=== PATIENT | female | born 1995 | race Caucasian/White ===

== ENCOUNTER → 2021-10-21 14:41 | Outpatient (CLI) | payer OTHER, SELFPAY ==
[2021-10-21 19:08] LABS: COVID19 -Nasal RAPID Negative (Negative)
== END ==
PROVIDERS: PCP Physician Assistant; Visit Provider Obstetrics & Gynecology
DX: Z01.812 Encounter for preprocedural laboratory examination (principal); Z20.822 Contact with and (suspected) exposure to COVID-19
CPT/HCPCS: 87635; C9803

== ENCOUNTER 2021-10-22 09:39 | Day surgery (SDC) | payer OTHER, SELFPAY ==
[2021-10-20 10:41] VITALS: BMI 51.5
[2021-10-22] VITALS (7 sets, daily range): BP systolic 98–136; BP diastolic 61–92; PULSE 77–89; RESP 16–99; TEMP 36.4–36.8; O2SAT 96–98; BMI 51.5
--- NOTE | 2021-10-22 | PATH_ITS ---
[facility] Accession Number: [id number] . 01 Material submitted: . PART A: endometrium - ENDOMETRIAL POLYPS PART B: endometrium - ENDOMETRIAL CURETTINGS PART C: endocervix - ENDOCERVICAL CURETTINGS . 01 Diagnosis: A. Endometrial Polyps, Polypectomy: Rare focus of complex hyperplasia without atypia, in background of polyp(s). Background of mostly proliferative endometrium with breakdown. Negative for malignancy. . B. Endometrium, Curettage: Multifocal complex hyperplasia without atypia, in background of polyp(s). Background of mostly proliferative endometrium with breakdown. Negative for malignancy. . C. Endocervix, Curettage: Predominantly blood. Rare strips of mixed benign endocervical epithelium and benign breakdown endometrium. V 10/28/2021 1238 Local . 01 Comment: Dr. Patricia Daniel reviewed this case and concurs with the diagnosis. . 01 Electronically signed: . Barbi Casas MD, Pathologist NPI- [id number] . 01 Gross description: . Part A: ENDOMETRIAL POLYPS: Received in formalin are minute fragments of mucoid and hemorrhagic material measuring 2.0 x 2.0 x 0.4 cm in aggregate. Submitted in toto in 1 cassette. Part B: ENDOMETRIAL CURETTINGS: Received in formalin are minute fragments of mucoid and hemorrhagic material measuring 3.0 x 3.0 x 0.4 cm in aggregate. Submitted in toto in 2 cassettes. Part C: ENDOCERVICAL CURETTINGS: Received in formalin are minute fragments of mucoid and hemorrhagic material measuring 1.5 x 1.5 x 0.4 cm in aggregate. Submitted in toto in 1 cassette. /JOHN PAUL 10/25/2021 1842 Local . 01 Pathologist provided ICD-10: N85.00, N92.1, N84.0 . 01 CPT . 194355, 852947, 488348 Specimen Comment: A courtesy copy of this report has been sent to [phone] Performed at: 01 [facility] [address] [place] [address], [place], [place] [id number] MD Getachew Breen MD Phone: [phone]
[2021-10-22] MEDS: LACTATED RINGERS 1,000 ML 42 ML IV (09:55)
--- NOTE | 2021-10-22 10:08 | PM.PREOP ---
Pre-operative Note COVID-19 COVID-19 status: Negative Result date/Date tested (Pos, Neg/Pending): 10/22/21 Criteria for continued procedure: Non-surgical alternatives not available or appropriate per current SOC Interval Note History & Physical reviewed/Exam performed by Physician: Yes Changes to H&P: No
--- NOTE | 2021-10-22 11:16 | SUR.OPER ---
Lithotomy on padded OR bed, head on pillow, arms secured on padded arm boards at <90 degrees abduction. Legs secured in padded yellow fins stirrups.
--- NOTE | 2021-10-22 12:58 | P.OP_ITS ---
Operative Date/Time/Diagnoses Date of procedure: 10/22/21 Time of procedure: 12:10 Pre-op diagnosis: Dysfunctional uterine bleeding Endometrial polyp Post-op diagnosis: same Procedure & Clinicians Procedure: Procedures Operation Date: 10/22/21 11:00 Actual Procedure Side Surgeon p Hysteroscopy with polypectomy, Dilation and Curettage Krzysztof Lopez MD Indications: Jitendra is a 26-year-old nulligravida whose last normal menstrual period began on June 25, 2021 and continued until 09/24/2021 with intermittent spotting/bleeding since then presented in September 2021 to discuss hysterectomy.? [place] [facility] for a long history of menometrorrhagia requesting hysterectomy but those requests have been denied to this point.? Patient experienced menarche at age 10 and her periods have never been regular.? She was placed on oral contraceptives from age 14 through age 23 and although it decreased her flow, her periods remained chaotic and very painful when they did occur.? Patient has not had an endometrial biopsy performed and her last Pap smear at [facility] was apparently negative according to the patient.? Her has a vasectomy and they have no desire for children.? Patient underwent pelvic ultrasound on 06/08/2021 at [facility] which showed the uterus to be normal in overall size and shape measuring 3.7 x 4.5 x 10.3 cm.? Slight cystic changes seen in the lower uterine segment and cervix with the biggest cyst measuring 6 mm in mean diameter.? As the endometrial stripe approaches the fundus, it is expanded measuring 2.3 cm in sagittal diameter.? Within the hyperechoic focus a rounded 1.6-1.7 cm somewhat more discrete focus with a vascular stalk is identified suspicious for polyp.? Both ovaries are slightly bulky and character with the right measuring 2.0 x 3.1 x 4.2 cm and the left measuring 2.2 x 2.8 x 4.0 cm.? Each contains numerous developing follicle scattered throughout the ovary without as distinct peripheral distribution.? 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 Patient's menstrual history and history of excessive hair growth are also consistent with PCOS.? After discussion of all options, the patient has decided to proceed instead with hysteroscopy with resection of endometrial polyp and D&C.? The option of inserting a Mirena IUD for menstrual suppression at the time of her procedure was declined.? She presents today for her scheduled surgery. Surgeon: Krzysztof Lopez Anesthesia Type: General Operative Notes Findings: The uterine cavity sounds to a depth of 9 cm. Cavity itself contains 3 thin stalked polyps and the endometrium throughout the cavity is abundant and shaggy appearance. Scant ECC was obtained along with abundant EMC. Polyps, ECC, and EMC were submitted as separate pathologic specimens Closure Type: not applicable Specimen(s): endometrial curettings, endometrial polyp and other (Endocervical curettings) Estimated blood loss (mL): 25 Blood products transfused: none Procedure in detail: With the patient under satisfactory general anesthesia in the modified dorsal lithotomy position, perineum, vagina, and lower abdomen were prepped and draped in the usual manner for vaginal surgery. A pre-surgical safety time-out was then taken in accordance with [facility] Main OR protocols. A bivalve speculum was inserted vagina and the cervix easily visualized. Menstrual bleeding was noted to be coming from the cervical os. The endocervical canal was sequentially dilated to 6 mm with Hegar dilators and using saline as a distention medium the endometrial cavity was then inspected hysteroscopically with the findings as noted previously. The distention medium was then switched to sorbitol and using a resectoscope with a loop electrode, the polyps were removed at their base and submitted as a separate pathologic specimen. Endocervical curettings were then obtained Kevorkian box curette followed by sharp curettage of the endometrial cavity. ECC and EMC were submitted as separate pathologic specimens. Following completion of the curettage, the tenaculum was removed from the anterior lip of the cervix and an Allis clamp was used render the tenaculum punctures hemostatic. Once complete hemostasis was assured, the speculum was removed from vagina and the patient awakened from anesthesia. She was then transferred to PACU for a period of observation and recovery after having tolerated procedure well. Complications: none Post-operative Condition: stable Disposition: PACU Plan for aftercare: Routine postoperative care with follow-up planned for 2 weeks postop.
== END 2021-10-22 14:02 | disposition home or self-care (01) ==
PROVIDERS: PCP Physician Assistant; Referring Provider Obstetrics & Gynecology; Visit Provider Obstetrics & Gynecology
PROC: 0UDB8ZZ Extraction of Endometrium, Via Natural or Artificial Opening Endoscopic (ICD-10-PCS; CPT 58558; principal; 2021-10-22 11:00)
DX: N85.00 Endometrial hyperplasia, unspecified (principal); N93.8 Other specified abnormal uterine and vaginal bleeding; E66.01 Morbid (severe) obesity due to excess calories; Z68.43 Body mass index [BMI] 50.0-59.9, adult; E28.2 Polycystic ovarian syndrome
CPT/HCPCS: 58558; J0330; J1100; J1885; J2250; J2405; J2704; J3010

== ENCOUNTER → 2022-01-26 14:55 | Outpatient (ROUT) | payer OTHER, SELFPAY ==
[2022-01-26 15:23] LABS: COVID19 -Nasal RAPID Negative (Negative)
== END ==
PROVIDERS: PCP Physician Assistant; Visit Provider Obstetrics & Gynecology
DX: Z01.812 Encounter for preprocedural laboratory examination (principal); Z20.822 Contact with and (suspected) exposure to COVID-19
CPT/HCPCS: 87635

== ENCOUNTER 2022-01-27 12:09 | Day surgery (SDC) | payer OTHER, SELFPAY ==
[2022-01-25 12:33] VITALS: BMI 52.6
[2022-01-27] VITALS (17 sets, daily range): BP systolic 97–142; BP diastolic 49–92; PULSE 67–95; RESP 12–18; TEMP 36.1–36.8; O2SAT 94–100; BMI 52.6; BMI 53.7
--- NOTE | 2022-01-27 | PATH_ITS ---
[facility] Accession Number: [id number] . 01 Material submitted: . uterus - UTERUS AND FALLOPAIN TUBES . 01 Diagnosis: Uterus and Fallopian Tubes, Supracervical Hysterectomy and Bilateral Salpingectomy: Disordered proliferative endometrium; no atypical hyperplasia and no malignancy. Complete cross-section of bilateral fimbriated fallopian tubes identified without any significant pathologic alterations. [facility]V 01/31/2022 1224 Local . 01 Electronically signed: . Karla Fairchild MD, Pathologist NPI- [id number] . 01 Gross description: . The specimen is received in formalin labeled with the patient's name, , and uterus and fallopian tubes and consists of a relatively intact uterus (52 grams, 5.4 cm SI, 5.2 cm ML, 3.7 cm AP), with no cervix identified and two unoriented fimbriated fallopian tubes (the first measures 7.5 x 0.7 cm and the second is fragmented and reapproximated to measure 7.0 x 0.6 cm). No additional adnexa are identified. Due to the lack of cervix and attached adnexa, orientation cannot be determined. The uterine serosa is rico and smooth with no evidence of adhesions or hemorrhage identified. The margin at the lower uterine segment is inked blue. The endometrial cavity measures 2.3 cm from cornu to cornu and 2.8 cm in length with lush red endometrium that averages 0.3 cm thick with delicate friable endometrium. No polyps or lesions are identified. The myometrium is pink and trabecular, and measures up to 1.5 cm in maximum thickness with no nodules or lesions identified. Two additional detached fragments of uterus are found within the container measuring 2.6 x 2.0 x 1.8 cm and 2.5 x 2.2 x 2.0 cm, both with presumed endometrium. . The intact fallopian tube has congested smooth serosa with multiple cystic structures near the fimbriated end measuring 0.6 cm in greatest dimension, filled with clear serous fluid. Sectioning reveals an unremarkable stellate lumen. The fragmented fimbriated fallopian tube has rico smooth serosa with no cystic structures identified. Sectioning reveals an unremarkable stellate lumen. . A1: Lower uterine segment to margin perpendicular. A2-A5: Full thickness sections. A6: Opposite side perpendicular lower uterine segment to margin. A7-A10: Opposite side full thickness sections. A11: Injection Mold Tooling Technician separate sections with endometrium. A12: Intact fallopian tube to include entire fimbriae and cross sections. A13: Fragmented fallopian tube to include one-half of bisected fimbriae and cross sections. ([id number]) /[facility] 01/28/2022 1730 Local . 01 Pathologist provided ICD-10: N92.1, N85.01 . 01 CPT . 140119 Specimen Comment: A courtesy copy of this report has been sent to [phone] Performed at: 01 [facility] [address] [place] [address] [address] [facility], [place], [place] [id number] MD Getachew Breen MD Phone: [phone]
[2022-01-27] MEDS: LACTATED RINGERS 1,000 ML 42 ML IV (12:55)
[2022-01-27] MEDS: ACETAMINOPHEN IV 1,000 MG/100 ML VIAL 400 MG IV (12:56)
[2022-01-27] MEDS: SCOPOLAMINE 1 PATCH TOP (12:56)
--- NOTE | 2022-01-27 13:36 | PM.PREOP ---
Pre-operative Note COVID-19 COVID-19 status: Negative Result date/Date tested (Pos, Neg/Pending): 01/26/22 Criteria for continued procedure: Non-surgical alternatives not available or appropriate per current SOC Interval Note History & Physical reviewed/Exam performed by Physician: Yes Changes to H&P: Yes H&P completed within 30 days and has changed as indicated here:: In addition to counseling re: performance of TLH w/ BS as originally planned, also discussed was the possibility of laparoscopic supracervical hysterectomy should her pelvic anatomy or other intraoperative considerations require supracervical hysterectomy be performed instead of TLH w/ BS due to safety concerns. She understands the possible option of supracervical hysterectomy and accepts the option if indicated.
[2022-01-27] MEDS: CEFAZOLIN 3 GM IN 0.9 % NACL 3 GM/100 ML PLAST..BAG IV (14:03)
[2022-01-27] MEDS: BUPIVACAINE 0.5% W/ EPI (PF) 30 ML VIAL INJ (14:46)
--- NOTE | 2022-01-27 15:00 | SUR.OPER ---
Lithotomy on padded OR bed. Brecon Pad Positioner under torso. Head on wedge per anesthesia, arms padded and tucked at sides. Legs secured in padded yellow fins stirrups.
[2022-01-27] MEDS: ROPIVACAINE 0.2% PF 2 MG/ML 20ML AMP 20 ML INJ (15:23)
--- NOTE | 2022-01-27 16:32 | PM.GYNOP.1 ---
Operative Date/Time/Diagnoses Date of procedure: 01/27/22 Time of procedure: 14:15 Pre-op diagnosis: Dysfunctional uterine bleeding Complex endometrial hyperplasia without atypia Post-op diagnosis: same Procedure & Clinicians Procedure: Procedures Operation Date: 01/27/22 13:45 Actual Procedure Side Surgeon p Laparoscopic supracervical hysterectomy and bilateral salpingectomy Krzysztof Lopez MD Indications: Jitendra is a 26-year-old nulligravida whose last normal menstrual period began on December 28, 2021 with intermittent spotting/bleeding since then presented in September 2021 to discuss hysterectomy.? Patient has been seen on [facility] and also over [facility] for a long history of menometrorrhagia requesting hysterectomy but those requests have been denied to this point.? Patient experienced menarche at age 10 and her periods have never been regular.? She was placed on oral contraceptives from age 14 through age 23 and although it decreased her flow, her periods remained chaotic and very painful when they did occur.? Patient has not had an endometrial biopsy performed and her last Pap smear at [facility] was apparently negative according to the patient.? Her has a vasectomy and they have no desire for children.? Patient underwent pelvic ultrasound on 06/08/2021 at [facility] which showed the uterus to be normal in overall size and shape measuring 3.7 x 4.5 x 10.3 cm.? Slight cystic changes seen in the lower uterine segment and cervix with the biggest cyst measuring 6 mm in mean diameter.? As the endometrial stripe approaches the fundus, it is expanded measuring 2.3 cm in sagittal diameter.? Within the hyperechoic focus a rounded 1.6-1.7 cm somewhat more discrete focus with a vascular stalk is identified suspicious for polyp.? Both ovaries are slightly bulky and character with the right measuring 2.0 x 3.1 x 4.2 cm and the left measuring 2.2 x 2.8 x 4.0 cm.? Each contains numerous developing follicle scattered throughout the ovary without as distinct peripheral distribution.? 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 Patient's menstrual history and history of excessive hair growth are also consistent with PCOS.? On 10/22/2021 the patient underwent hysteroscopy with resection of endometrial polyp and D&C.? Pathology from the procedure showed complex endometrial hyperplasia without atypia.? After discussion of all options postoperatively, she declines insertion of a Mirena IUD infavor of TLH w/ bilateral salpingectomy.? She presents today for her scheduled surgery.? Surgeon: Krzysztof Lopez Assembly Machine Set Up Mechanic: Florence Ryan Anesthesia Type: General Operative Notes Findings: Uterus is normal in size and shape. Fallopian tubes and ovaries are also normal anterior cul-de-sac is free of abnormality as is the posterior cul-de-sac. The liver edge and gallbladder are normal to laparoscopic visualization. The appendix was not visualized. Closure Type: primary Specimen(s): left tube, right tube and uterus Applied: catheter Estimated blood loss (mL): 50 Blood products transfused: none Procedure in detail: With the patient under satisfactory general endotracheal anesthesia in the modified dorsal lithotomy position, the perineum, vagina, and abdomen were prepped and draped in the usual manner for laparoscopic hysterectomy. A pre-surgical safety time-out was then taken in accordance with [facility] Main OR protocols. A Mcguire catheter was inserted in the bladder. A bivalve speculum was then inserted in the vagina and the anterior lip of the cervix grasped with a single-tooth tenaculum. The cervix was dilated so as to insert a VCare uterine manipulator with small cup which was secured in place in the usual manner. The inferior edge of the umbilicus was then infiltrated with 0.5% Marcaine with epinephrine and using a long Veress needle, the abdomen was insufflated with carbon dioxide through a 1 cm infraumbilical incision. A long 5 mm trocar and sleeve then introduced through the incision into the abdominal cavity and proper placement of the sleeve was confirmed with the laparoscope. A 2nd and 3rd long 5 mm port was placed in the left and right mid quadrants using a similar technique. Using a 3 puncture technique pelvis was visualized with the findings as noted above. Due to the depth of the pelvis and sidewall adiposity limiting visualization, the decision was made to proceed with supracervical hysterectomy. The left fallopian tube was mobilized and using the PowerSeal bipolar device, the fimbria of Kylah on the left was coagulated and divided with the dissection carried across the mesosalpinx to the cornua where the tube was amputated. The tube was passed through 1 of the 5 mm ports and submitted as part of the aggregate specimen. Dissection with the PowerSeal bipolar device was then carried down the lateral aspect of the uterus on the left-hand side to the level of the endocervical canal. Bladder flap was initiated on the left side and carried across the midline. The bladder was then mobilized. The ascending uterine vessels on the left were then coagulated and divided with the PowerSeal bipolar device and attention was then turned to the right side. The right fallopian tube was mobilized with a grasping forcep and the fimbria varicose coagulated and divided with the PowerSeal bipolar device. The dissection on the right side was then carried across the mesosalpinx to the level of the cornua where the fallopian tube was amputated with the PowerSeal bipolar device and passed through 1 of the 5 mm ports to be submitted as part of the aggregate specimen. The dissection on the right side was then taken down the lateral aspect of the uterus and once the level of the endocervical canal was reached, the bladder flap was completed and the bladder fully advanced. The vessels on the right were then taken with the PowerSeal bipolar device and divided. The uterus was seen to jazmin fully and using a Amanda loop, the uterine corpus was amputated at the level of the endocervical canal. Cervical stump hemostasis was excellent and the endocervical canal was coagulated with monopolar current. A 4 cm transverse suprapubic incision was then made in the midline through which a 12 mm port was introduced into the abdominal cavity. An Endo-Catch was deployed through the 12 mm port, the uterus captured, and the bag was brought out through the suprapubic incision. Fascial incision was extended slightly on both sides and using a small David retractor, the uterus was brought through the abdominal wall and morcellated. Once morcellation was complete the David retractor was removed along with the Endo-Catch bag and the fascia closed with 0 Vicryl in a running stitch. Subcutaneous tissues were then brought together with 2-0 chromic in a running stitch. The abdomen was then re-insufflated and pelvis fully inspected with no abnormalities or bleeding noted. 20 cc of ropivacaine were instilled into the pelvis and the pelvis and abdomen were inspected a final time with no other abnormalities noted. The pneumoperitoneum was then vented and the ports removed. All the incisions were then closed with 4-0 Monocryl using inverted interrupted stitches and appropriate dressings were applied. Patient was then awakened from anesthesia and transferred to the PACU after having tolerated the procedure well. Complications: none Post-operative Condition: stable Disposition: PACU Plan for aftercare: Routine postoperative care.
[2022-01-27] MEDS: LACTATED RINGERS 1,000 ML 100 ML IV ×2 (16:33→18:16)
[2022-01-27] MEDS: HYDROMORPHONE 2 MG INJ IV ×4 (16:42→17:10)
[2022-01-27] MEDS: OXYCODONE IR 5 MG TABLET PO ×3 (16:43→20:54)
[2022-01-27] MEDS: ONDANSETRON 4 MG/2 ML INJ IV (16:43)
[2022-01-27] MEDS: KETOROLAC 30 MG/ML VIAL IV ×2 (17:04→22:41)
[2022-01-27] MEDS: ACETAMINOPHEN 325 MG TABLET 650 MG PO (20:53)
[2022-01-27] MEDS: DOCUSATE 100 MG CAPSULE 200 MG PO (20:54)
[2022-01-28 02:00] VITALS: PULSE 52; RESP 14; O2SAT 99
[2022-01-28] MEDS: KETOROLAC 30 MG/ML VIAL IV (05:21)
[2022-01-28 05:30] VITALS: BP 102/54; PULSE 55; RESP 14; TEMP 36.2; O2SAT 97
[2022-01-28] MEDS: OXYCODONE IR 5 MG TABLET PO ×2 (06:26→10:27)
[2022-01-28 07:44] VITALS: BP 96/62; PULSE 65; RESP 18; TEMP 36.5; O2SAT 99
[2022-01-28 07:49] LABS: Add Manual Diff / Slide Review NO; Basophils Absolute Auto 0 /uL (0-100); Basophils Percent Auto 0.2 % (0-2); Eosinophils Absolute Auto 0 /uL (0-450); Hematocrit 31.8 % (36-46); Hemoglobin 10.4 g/dL (12.0-16.0); Lymphocytes Absolute Auto 1500 /uL (1100-4500); Lymphocytes Percent Auto 14.2 % (25-40); Mean Corpuscular HGB Conc 32.7 % (30-36); Mean Corpuscular Volume 79.6 fL (80-100); Monocytes Absolute Auto 600 /uL (0-900); Monocytes Percent Auto 5.6 % (3-14); Neutrophils Absolute Auto 8200 /uL (1500-7000); Platelet Count 360 X10^3/uL (150-400); Red Cell Distribution Width 19.1 % (11.6-14.8); White Blood Cell Count 10.2 X10^3/uL (4.5-11.0)
[2022-01-28] MEDS: DOCUSATE 100 MG CAPSULE 200 MG PO (08:37)
[2022-01-28 09:02] VITALS: BP 101/55; PULSE 69; RESP 18; TEMP 36.6; O2SAT 98
--- NOTE | 2022-01-28 09:53 | PM.DS.1 ---
History of Present Illness History of Present Illness Date Patient Seen: 01/28/22 Time Patient Seen: 09:53 Chief complaint: Laparoscopic Total Hysterectomy *OPB* Narrative: Jitendra is a 26-year-old nulligravida whose last normal menstrual period began on December 28, 2021 with intermittent spotting/bleeding since then presented in September 2021 to discuss hysterectomy.? Patient has been seen on [facility] and also over [facility] for a long history of menometrorrhagia requesting hysterectomy but those requests have been denied to this point.? Patient experienced menarche at age 10 and her periods have never been regular.? She was placed on oral contraceptives from age 14 through age 23 and although it decreased her flow, her periods remained chaotic and very painful when they did occur.? Patient has not had an endometrial biopsy performed and her last Pap smear at [facility] was apparently negative according to the patient.? Her has a vasectomy and they have no desire for children.? Patient underwent pelvic ultrasound on 06/08/2021 at [facility] which showed the uterus to be normal in overall size and shape measuring 3.7 x 4.5 x 10.3 cm.? Slight cystic changes seen in the lower uterine segment and cervix with the biggest cyst measuring 6 mm in mean diameter.? As the endometrial stripe approaches the fundus, it is expanded measuring 2.3 cm in sagittal diameter.? Within the hyperechoic focus a rounded 1.6-1.7 cm somewhat more discrete focus with a vascular stalk is identified suspicious for polyp.? Both ovaries are slightly bulky and character with the right measuring 2.0 x 3.1 x 4.2 cm and the left measuring 2.2 x 2.8 x 4.0 cm.? Each contains numerous developing follicle scattered throughout the ovary without as distinct peripheral distribution.? 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 Patient's menstrual history and history of excessive hair growth are also consistent with PCOS.? On 10/22/2021 the patient underwent hysteroscopy with resection of endometrial polyp and D&C.? Pathology from the procedure showed complex endometrial hyperplasia without atypia.? After discussion of all options postoperatively, she declines insertion of a Mirena IUD in favor of planned TLH w/ bilateral salpingectomy.? She is admitted for her scheduled surgery.? Discharge Providers Provider Date of admission: 01/27/2022 Discharge Date: 01/28/22 Primary care physician: Lida Medina PA-C Discharge provider: Krzysztof Lopez MD Summary Hospital Course Discharge Diagnosis: Menometrorrhagia Complex endometrial hyperplasia without atypia Status post laparoscopic supracervical hysterectomy with bilateral salpingectomy Hospital Course: Early on the afternoon of 01/27/2022, the patient underwent an uneventful laparoscopic supracervical hysterectomy with bilateral salpingectomy for the aforementioned diagnoses. A total laparoscopic hysterectomy was originally planned but due to anatomic considerations the surgical technique was altered to laparoscopic supracervical hysterectomy instead. The surgery itself was uneventful and details of the procedure well summarized on my operative note of that date. Following surgery the patient has done extremely well with prompt return of bowel and bladder function, she is remained afebrile and normotensive throughout her postoperative course, she is ambulating independently, tolerating regular diet, and her pain is well controlled with oral pain medications. She will be discharged at this time to home in an afebrile normotensive condition after counseling regarding precautionary symptoms, limitations activity, medications, and plans for follow-up which will be in 2 weeks. Medications at discharge will include oxycodone 5 mg p.o. Q 4-6 hours as needed pain, and ibuprofen 600 mg p.o. q.6 hours as needed pain. In addition the patient will continue taking iron supplement daily for the next 30 days and then will be discontinuing additional iron supplementation. Status at Discharge Cognitive/behavioral status at discharge: oriented Functional status at discharge: independent ambulation Overall status at discharge: patient is progressing back to baseline Time Spent with Patient Time spent: Less than 30 minutes Exam Vital Signs (past 8 hours): - 01/28/22 02:00 01/28/22 05:30 01/28/22 07:44 Temperature 97.2 F L 97.7 F Pulse Rate 52 L 55 L 65 Respiratory Rate 14 14 18 Blood Pressure 102/54 L 96/62 Pulse Oximetry 99 97 99 Oxygen Flow Rate 0 0 0 01/28/22 09:02 Temperature 97.8 F Pulse Rate 69 Respiratory Rate 18 Blood Pressure 101/55 L Pulse Oximetry 98 Oxygen Flow Rate 0 Oxygen Delivery Method Room Air Oxygen Flow Rate 0 Const General: cooperative and comfortable Nutritional Appearance: average body habitus Orientation: alert and oriented x3 HENMT Head: normal to inspection, atraumatic and abrasion Ears: hearing grossly normal bilaterally Face and sinus: face symmetric Eyes General: appearance normal, both eyes and all related structures Conjunctivae: conjunctivae normal Sclera: sclerae normal EOM: EOM intact bilaterally Neck Neck: normal visual inspection Resp Effort & Inspection: normal respiratory effort and able to speak in complete sentences Auscultation: clear to auscultation bilaterally Cardio Rate: regular rate Rhythm: regular rhythm Heart Sounds: S1 normal, S2 normal and no murmurs GI Inspection: normal to inspection and incision (Surgical dressings clean and dry) Palpation: soft, no hepatosplenomegaly and tender (Mild, diffuse postsurgical tenderness) External Female Exam: other (No significant bleeding noted) Extrem General: no calf tenderness Psych Appearance: grossly normal Mental Status: mental status grossly normal Speech and Movement: speech and movement normal Mood: congruent mood Affect: normal affect Attitude: cooperative Thought Process: normal Thought Content: normal Judgment: judgment good Objective Labs Result Diagrams: 01/28/22 05:40 Labs: Laboratory Results - last 24 hr 01/28/22 05:40 WBC 10.2 RBC 4.00 Hgb 10.4 L Hct 31.8 L MCV 79.6 L MCH 26.0 MCHC 32.7 RDW 19.1 H Plt Count 360 Neut % (Auto) 80.0 H Lymph % (Auto) 14.[address] [place] % (Auto) 5.6 Eos % (Auto) 0.0 L Baso % (Auto) 0.2 Neut # (Auto) 8200 H Lymph # (Auto) 1500 [place] # (Auto) 600 Eos # (Auto) 0 Baso # (Auto) 0 PFSH Medical History (Updated 11/09/21 @ 16:52 by Krzysztof Lopez MD) Heart murmur Heavy menstrual bleeding Iron deficiency anemia Irregular menstrual cycle Morbid obesity Painful menstrual periods Surgical History (Updated 01/25/22 @ 12:35 by Adore Hess RN) Anesthesia History of hysteroscopy (10/22/21) History of knee surgery (~2012) Family History (Updated 10/18/21 @ 19:49 by Vandana Raya) Grandmother Ovary cancer Breast cancer Stroke Grandfather Hypertension Hyperlipidemia Social History household members: spouse Smoking Status: Never smoker alcohol intake: current Discharge Plan Discharge Plan Patient Disposition: Home Provider Discharge Comment: Please review the discharge instructions you received when you were released from the hospital. Your follow-up appointment is scheduled for 2 weeks after your surgery and I look forward to seeing you then. If however in the meanwhile you have any issues, concerns, or questions, please contact me either through the office phone at [phone], or via the patient portal. Discharge orders & Medications Discharge Orders: Discharge (Order); Ordered 01/28/22 Ordered By: Krzysztof Lopez Prescriptions: New oxycodone 5 mg Tablet 5 mg PO Q4HR PRN (Reason: Pain, Moderate (4-6)) Qty: 20 0RF ibuprofen 600 mg tablet 600 mg PO Q6H PRN (Reason: fever or pain) Qty: 30 0RF Continued ferrous sulfate 325 mg (65 mg iron) tablet 325 mg PO DAILY Follow up/Referrals: Lida Medina PA-C [Primary Care Provider] - Krzysztof Lopez MD [Physician] - Diet/Activity/Treatments Diet: Diet as Tolerated Activity: As tolerated Other treatments: [id number]-[id number] Tylenol may be used for additional pain relief. Mlsj-oum-iveeghb stool softeners and/or MiraLax may be used for constipation. Skin/Wound/Dressing Care Report to your healthcare provider any signs of infection, such as:: chills, fever, increased pain, unusual drainage and unusual redness Dressing: Dressings may be removed on the morning of 01/30/2022 Visit Report/Discharge Packet Instructions: DI for Hysterectomy, DI for Laparoscopy Stand Alone Forms: Surgery Discharge Discharge Data Primary Care Provider: Lida Medina Attending Provider: Krzysztof Lopez Quality VTE Deep Vein Thrombosis/Pulmonary Embolism Present on Admission: No
--- NOTE | 2022-01-28 11:01 | CM.DANOTE ---
DCP Assessment: Payor confirmed: Sheyla Wyatt PCP confirmed: Lida Medina MD Pt is a 26 y.o. F who presented to the hospital for a scheduled hysterectomy with Dr. Lopez. Pt brought up to the AC unit for further management and evaluation of surgical procedure. DCP met with pt this morning to discuss needs. Pt laying in bed. Spouse at bedside. DCP introduced self and role. Pt is independent at baseline. Pt lives with spouse in a house in [place]. Pt denies DME. Pt has no needs. No needs identified by this DCP. White board updated and instructed to call if needed. Pt and spouse thankful for discussion. P: Mcguire has been taken out. Once pt able to urinate on her own, pt to discharge home via spouse POV. Jasmin Ham RN/GUERA Discharge Planning/Care Management CM Discharge Assessment Start: 01/28/22 11:01 Freq: Status: Active Protocol: Document 01/28/22 11:01 PAUL (Rec: 01/28/22 11:01 [id number]) Discharge Planning Assessment Assigned Black Off Worker Jasmin Ham RN/GUERA Advance Directives? No History Provided By Patient,Medical Record Prior Living Arrangements House Household Members spouse Type of transporation used prior to Drives own vehicle admit Independent with ADL's Yes Is patient alert and oriented? Yes Discharge Plan Home Transportation Arrangement Spouse POV Referrals Initiated None needed Whiteboard Updated in Patient Room with Yes name and ext. # of Black Off Worker Review Status In Process Please Provide Date Initial DC 01/28/22 Assessment Was Performed Next Review Type Continued Stay Review Pre-Anesthesia Assessment Start: 01/25/22 12:33 Freq: Status: Complete Protocol: Document 01/25/22 12:33 [facility] (Rec: 01/25/22 12:39 [facility] [id number]) Pre-Anesthesia Assessment Patient Information Reviewed Via Chart Review Comment COVID screen @ 01/26/22 Seen Specialist in Last 12 Months Yes Specialist Seen Client Relationship Consultant Primary Language Northern Irish Patcher 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 No Hx Sleep Apnea No CPAP/BIPAP use not prescribed Currently Taking a Beta Demetrio No Anti-Coagulant Therapy No Has a Picker No Cardiac Testing No Hx Pacemaker/ICD No Pacemaker Rep Required? No Cardiac Clearance Received Not Applicable Urinary Catheter Present No Hx Urinary Self Catheterization No Diabetes No Patient No Lactating No Hx Drug Resistant Organism No Received a COVID vaccine? Yes Marital Status Lives With spouse Patient Discharge Plan Description Return Home Advance Directives? No
--- NOTE | 2022-01-28 11:12 | PC.NURSE ---
Day shift: Dr Lopez called and informed of Pt's post-void residual scan and OK to D/C Pt now.
--- NOTE | 2022-01-28 11:45 | PC.NURSE ---
Day shift: Paperwork signed and all question answered. Lap sites remains CDI. VS WNL. RA 98%. Uses I.S. as directed. Tolerated breakfast. Wants to discharge home now. Pt has all personal belongings. scripts sent electronic to Pt's pharmacy. Left unit via WC at approx [phone]. Pt's Spouse is driving her home.
== END 2022-01-28 11:48 | disposition home or self-care (01) ==
LOC: OR 12:11 → AC 12:11
PROVIDERS: PCP Physician Assistant; Referring Provider Obstetrics & Gynecology; Visit Provider Obstetrics & Gynecology
PROC: 0UT94ZZ Resection of Uterus, Percutaneous Endoscopic Approach (ICD-10-PCS; CPT 58542; principal; 2022-01-27 13:45)
DX: N93.8 Other specified abnormal uterine and vaginal bleeding (principal); N85.01 Benign endometrial hyperplasia
CPT/HCPCS: 58542; 85025; J0131; J0690; J1100; J1170; J1885; J2250; J2405; J2704; J2795; J3010